=== PATIENT | female | born 1970 | race Caucasian/White ===

== ENCOUNTER → 2017-07-08 | Outpatient (REF) ==
[2017-07-08 11:06] LABS: THYROID STIMULATING HORMONE 2.36 uIU/mL (0.465-4.680)
== END ==
LOC: ZLAB.WCH 10:23
PROVIDERS: Family Medicine
DX: Z01.89 Encounter for other specified special examinations (principal)

== ENCOUNTER → 2019-01-30 | Outpatient (CLI) | payer OTHER | LOC: COL.RAD 09:36 | DX: R10.11 Right upper quadrant pain (principal); R11.0 Nausea | CPT/HCPCS: A9537 ==

== ENCOUNTER → 2019-02-20 | Outpatient (REF) ==
[2019-02-20 17:06] LABS: THYROID STIMULATING HORMONE 1.86 uIU/mL (0.465-4.680)
== END ==
LOC: ZLAB.WCH 16:00
PROVIDERS: Physician Assistant
DX: Z01.89 Encounter for other specified special examinations (principal)

== ENCOUNTER 2019-04-27 11:25 | Emergency (ER) | payer OTHER ==
[~2019-04-27] VITALS: Ht 162.6 cm; Wt 100.0 kg
[2019-04-27 11:26] VITALS: TEMP 98.4
[2019-04-27] MEDS ORDERED: PRIL40 PO (11:47)
[2019-04-27] MEDS ORDERED: NORVASC 10MG10 MG PO (11:47)
[2019-04-27] MEDS ORDERED: TOPROL XL 25MG25 MG PO (11:48)
[2019-04-27] MEDS ORDERED: FLONASE NASAL S16 GM NS (11:48)
[2019-04-27] MEDS ORDERED: PHARMASSURE ZIN50 MG PO (11:49)
[2019-04-27] MEDS ORDERED: PROBIOTIC FORMU1 CAP PO (11:50)
[2019-04-27] MEDS ORDERED: CLARITIN 1010 MG/TAB PO (11:50)
[2019-04-27 11:57] LABS: BASO # 0.1 (0.0-0.2); BASO % 0.6 % (0.0-2.0); EOS # 0.3 (0.0-0.7); EOS % 2.3 % (0-4.0); GRAN # 7.5 (1.4-6.5); GRAN % 65.8 % (42.2-75.2); HEMATOCRIT 44.7 % (37.0-47.0); HEMOGLOBIN 14.3 g/dl (12.5-16.0); LYMPH # 2.6 (1.2-3.4); LYMPH % 22.7 % (20.0-51.0); MEAN CELL VOLUME 82 fl (80.0-100.0); MEAN CORPUSCULAR HEMOGLOBIN 26 pg (27.0-31.0); MEAN CORPUSCULAR HGB CONC 32 g/dl (33.0-37.0); MEAN PLATELET VOLUME 10.2 fl (7.4-10.4); MONO # 0.9 (0.1-0.6); PLATELET COUNT 287 K/mm3 (130-400); RED BLOOD COUNT 5.46 M/mm3 (4.10-5.30); REDCELL DISTRIBUTION WIDTH-CV 15.8 % (11.5-14.5)
[2019-04-27 12:09] LABS: ALANINE AMINOTRANSFERASE 50 U/L (9-52); ALBUMIN 4.2 gm/dL (3.5-5.0); ALKALINE PHOSPHATASE 154 U/L (50-136); ANION GAP 11 mmol/L (7-16); AST,SGOT 41 U/L (15-37); BILIRUBIN,TOTAL 0.4 mg/dL (0.0-1.0); BLOOD UREA NITROGEN 22 mg/dL (7-17); CALCIUM 9.6 mg/dL (8.4-10.2); CARBON DIOXIDE 25 mmol/L (22-30); CHLORIDE 106 mmol/L (98-107); CREATININE, serum 0.67 (0.52-1.25); GLUCOSE 113 mg/dL (74-106); LIPASE 106 U/L (23-300); POTASSIUM 4.2 mmol/L (3.4-5.0); SODIUM 142 mmol/L (137-145); TOTAL PROTEIN 7.9 gm/dL (6.4-8.2)
[2019-04-27 12:18] LABS: TROPONIN-I < 0.012 ng/mL (0.000-0.035)
[2019-04-27] MEDS ORDERED: CARAFATE 1GM1 G PO (15:20)
[2019-04-27 16:42] VITALS: BP 125/76; PULSE 57
== END 2019-04-27 16:43 | disposition home or self-care (01) ==
LOC: COL.ER 11:25
PROVIDERS: Emergency Medicine
DX: R07.89 Other chest pain (principal); I10 Essential (primary) hypertension; R10.11 Right upper quadrant pain; F17.210 Nicotine dependence, cigarettes, uncomplicated; Z90.710 Acquired absence of both cervix and uterus; Z90.49 Acquired absence of other specified parts of digestive tract; Z79.51 Long term (current) use of inhaled steroids

== ENCOUNTER 2021-02-08 13:10 | Emergency (ER) | payer OTHER ==
[~2021-02-08] VITALS: Ht 160 cm; Wt 113.2 kg
[~2021-02-08 13:10] MED LIST: CARAFATE 1GM1 G PO; CLARITIN 1010 MG/TAB PO; FLONASE NASAL S16 GM NS; NORVASC 10MG10 MG PO; PHARMASSURE ZIN50 MG PO; PRIL40 PO; PROBIOTIC FORMU1 CAP PO; TOPROL XL 25MG25 MG PO
[2021-02-08 13:12] VITALS: TEMP 98.2
[2021-02-08 13:39] LABS: BASO # 0.1 (0.0-0.2); BASO % 0.4 % (0.0-2.0); EOS # 0.2 (0.0-0.7); EOS % 1.7 % (0-4.0); GRAN # 8.8 (1.4-6.5); GRAN % 69.4 % (42.2-75.2); HEMATOCRIT 41.4 % (37.0-47.0); HEMOGLOBIN 12.8 g/dl (12.5-16.0); LYMPH # 2.4 (1.2-3.4); LYMPH % 18.9 % (20.0-51.0); MEAN CELL VOLUME 81 fl (80.0-100.0); MEAN CORPUSCULAR HEMOGLOBIN 25 pg (27.0-31.0); MEAN CORPUSCULAR HGB CONC 31 g/dl (33.0-37.0); MEAN PLATELET VOLUME 10.7 fl (7.4-10.4); MONO # 1.1 (0.1-0.6); MONO % 8.4 % (1.7-9.3); PLATELET COUNT 276 K/mm3 (130-400); RED BLOOD COUNT 5.09 M/mm3 (4.10-5.30); REDCELL DISTRIBUTION WIDTH-CV 16.1 % (11.5-14.5)
[2021-02-08 13:47] LABS: ALBUMIN 4.1 gm/dL (3.5-5.0); BILIRUBIN,TOTAL 0.3 mg/dL (0.0-1.0); C-REACTIVE PROTEIN 2.6 mg/dL (0.0-0.9); CREATININE, serum 0.65 (0.52-1.25); TOTAL PROTEIN 7.8 gm/dL (6.4-8.2)
[2021-02-08 14:39] LABS: COLLECTION METHOD CLEAN CATCH
[2021-02-08 14:45] LABS: MUCOUS Present /lpf; PH 7 (5-8); URINE APPEARANCE Hazy; URINE BACTERIA Rare /hpf; URINE BILIRUBIN Negative (NEGATIVE); URINE BLOOD Negative (NEGATIVE); URINE COLOR Yellow; URINE GLUCOSE Negative (NEGATIVE); URINE KETONE Negative (NEGATIVE); URINE LEUKOCYTE ESTERASE Negative (NEGATIVE); URINE NITRATE Negative (NEGATIVE); URINE PROTEIN(semi-quant) Negative (NEGATIVE); URINE RBC None Seen /hpf; URINE UROBILINOGEN Negative (NEGATIVE)
[2021-02-08 16:39] VITALS: BP 109/67; PULSE 85
== END 2021-02-08 16:39 | disposition home or self-care (01) ==
LOC: COL.ER 13:10
PROVIDERS: Nurse Practitioner
DX: R10.32 Left lower quadrant pain (principal); F41.9 Anxiety disorder, unspecified; I10 Essential (primary) hypertension; Z87.891 Personal history of nicotine dependence; Z88.1 Allergy status to other antibiotic agents; Z88.6 Allergy status to analgesic agent; Z79.51 Long term (current) use of inhaled steroids
CPT/HCPCS: Q9967

== ENCOUNTER 2021-02-25 11:32 | Emergency (ER) | payer OTHER ==
[~2021-02-25] VITALS: Ht 160 cm; Wt 113.6 kg
[2021-02-25 11:47] VITALS: TEMP 98.1
[2021-02-25 12:25] LABS: COLLECTION METHOD CLEAN CATCH
[2021-02-25 12:33] LABS: BASO # 0.1 (0.0-0.2); BASO % 0.9 % (0.0-2.0); EOS # 0.2 (0.0-0.7); EOS % 2.4 % (0-4.0); GRAN # 5.8 (1.4-6.5); GRAN % 61.9 % (42.2-75.2); HEMOGLOBIN 13.9 g/dl (12.5-16.0); LYMPH # 2.4 (1.2-3.4); MEAN CELL VOLUME 82 fl (80.0-100.0); MEAN CORPUSCULAR HEMOGLOBIN 25 pg (27.0-31.0); MEAN CORPUSCULAR HGB CONC 31 g/dl (33.0-37.0); MEAN PLATELET VOLUME 10.3 fl (7.4-10.4); MONO # 0.8 (0.1-0.6); MONO % 8.2 % (1.7-9.3); PLATELET COUNT 304 K/mm3 (130-400); RED BLOOD COUNT 5.47 M/mm3 (4.10-5.30); REDCELL DISTRIBUTION WIDTH-CV 16.3 % (11.5-14.5)
[2021-02-25 12:38] LABS: ALBUMIN 4.5 gm/dL (3.5-5.0); BILIRUBIN,TOTAL 0.2 mg/dL (0.0-1.0); C-REACTIVE PROTEIN 2.1 mg/dL (0.0-0.9); CALCIUM 9.8 mg/dL (8.4-10.2); CREATININE, serum 0.62 (0.52-1.25); POTASSIUM 4.2 mmol/L (3.4-5.0); TOTAL PROTEIN 8.8 gm/dL (6.4-8.2)
[2021-02-25 12:39] LABS: MUCOUS Present /lpf; PH 7 (5-8); SQUAMOUS EPITHELIAL 20-50 /hpf; URINE APPEARANCE Cloudy; URINE BACTERIA Rare /hpf; URINE BILIRUBIN Negative (NEGATIVE); URINE BLOOD Negative (NEGATIVE); URINE COLOR Yellow; URINE GLUCOSE Negative (NEGATIVE); URINE KETONE Negative (NEGATIVE); URINE LEUKOCYTE ESTERASE Negative (NEGATIVE); URINE NITRATE Negative (NEGATIVE); URINE PROTEIN(semi-quant) Negative (NEGATIVE); URINE RBC 0-2 /hpf; URINE UROBILINOGEN Negative (NEGATIVE)
[2021-02-25 15:42] VITALS: BP 145/97; PULSE 71
== END 2021-02-25 15:42 | disposition home or self-care (01) ==
LOC: COL.ER 11:32
PROVIDERS: Family Medicine
DX: R29.810 Facial weakness (principal); I10 Essential (primary) hypertension; Z88.8 Allergy status to other drugs, medicaments and biological substances; Z87.891 Personal history of nicotine dependence

== ENCOUNTER 2022-04-15 12:02 | Emergency (ER) | payer OTHER ==
[~2022-04-15] VITALS: Ht 160 cm; Wt 118.2 kg
[2022-04-15 12:08] VITALS: TEMP 98
[2022-04-15 13:41] VITALS: BP 145/95; PULSE 73
== END 2022-04-15 13:38 | disposition home or self-care (01) ==
LOC: COL.ER 12:02
DX: T43.631A Poisoning by methylphenidate, accidental (unintentional), initial encounter (principal)

== ENCOUNTER → 2022-04-20 | Outpatient (CLI) | payer OTHER | LOC: DIA.ED | DX: E11.65 Type 2 diabetes mellitus with hyperglycemia (principal); Z79.84 Long term (current) use of oral hypoglycemic drugs; I10 Essential (primary) hypertension | CPT/HCPCS: G0108 ==

== ENCOUNTER → 2022-07-23 | Outpatient (CLI) | payer OTHER | LOC: DIA.ED 09:23 | DX: E11.65 Type 2 diabetes mellitus with hyperglycemia (principal); E11.40 Type 2 diabetes mellitus with diabetic neuropathy, unspecified; Z79.84 Long term (current) use of oral hypoglycemic drugs; I10 Essential (primary) hypertension | CPT/HCPCS: G0108 ==

== ENCOUNTER 2023-11-19 06:55 | Day surgery (SDC) | payer OTHER ==
[~2023-11-19] VITALS: Ht 160 cm; Wt 95.5 kg
[~2023-11-19 06:55] MED LIST changes: +ATIVAN 0.50.5 MG/TAB PO; +NORCO 325 MG-51 TAB PO; +XANAX 0.5MG0.5 MG PO
[2023-11-19 07:37] VITALS: BP 148/91; PULSE 68; TEMP 97.9
[2023-11-19] MEDS ORDERED: VITAMIN D362.5 MCG PO (07:56)
[2023-11-19] MEDS ORDERED: COREG 3.123.125 MG/T PO (07:57)
[2023-11-19] MEDS ORDERED: GLUCOPHAGE1000 MG PO (07:58)
[2023-11-19] MEDS ORDERED: ASPIRIN 81M81 MG/TA2 PO (07:59)
[2023-11-19] MEDS ORDERED: LIPITOR20 MG PO (08:00)
[2023-11-19 09:05] VITALS: BP 108/79; PULSE 90; TEMP 97.9
[2023-11-19 09:15] VITALS: BP 126/77; PULSE 64
--- NOTE | 2023-11-19 09:45 | NUR ---
Pt returned to [facility] procedure at 0905. VS remain stable. Tolerated oral intake. Discharge teaching complete, verbalized understanding. IV removed and pressure dressing applied. Pt dressed. Taken via wheelchair to private vehicle for dc home with ps driving.
== END 2023-11-19 09:45 | disposition home or self-care (01) ==
LOC: SDCO 06:55
DX: K22.2 Esophageal obstruction (principal); K21.9 Gastro-esophageal reflux disease without esophagitis; E66.01 Morbid (severe) obesity due to excess calories; G47.33 Obstructive sleep apnea (adult) (pediatric); Z68.42 Body mass index [BMI] 45.0-49.9, adult
CPT/HCPCS: C1726; J2704; J7120

== ENCOUNTER 2024-09-15 18:41 | Emergency (ER) | payer OTHER ==
[~2024-09-15] VITALS: Ht 160 cm; Wt 89.5 kg
[~2024-09-15 18:41] MED LIST changes: +ASPIRIN 81M81 MG/TA2 PO; +COREG 3.123.125 MG/T PO; +GLUCOPHAGE1000 MG PO; +LIPITOR20 MG PO; +VITAMIN D362.5 MCG PO
[2024-09-15 18:44] VITALS: TEMP 97.8
[2024-09-15 19:47] LABS: BASO % 0.4 % (0.0-2.0); EOS # 0.3 K/mm3 (0.0-0.7); EOS % 2.9 % (0.0-4.0); GRAN # 5.3 K/mm3 (1.4-6.5); GRAN % 58.6 % (42.2-75.2); HEMOGLOBIN 12.9 g/dl (12.5-16.0); LYMPH # 2.7 K/mm3 (1.2-3.4); LYMPH % 30.5 % (20.0-51.0); MEAN CELL VOLUME 80 fl (80.0-100.0); MEAN CORPUSCULAR HEMOGLOBIN 26 pg (27-31); MEAN CORPUSCULAR HGB CONC 32 g/dl (33.0-37.0); MEAN PLATELET VOLUME 10.7 fl (7.4-10.4); MONO # 0.7 K/mm3 (0.1-0.6); MONO % 7.3 % (1.7-9.3); PLATELET COUNT 239 K/mm3 (130-400); REDCELL DISTRIBUTION WIDTH-CV 15.6 % (11.5-14.5)
[2024-09-15] MEDS ORDERED: ATIVAN 0.50.5 MG/TAB PO (19:59)
[2024-09-15] MEDS ORDERED: VISTARIL 2525 MG/CAP PO (20:00)
[2024-09-15] MEDS ORDERED: Acetaminophen 500 MG TAB PO ONE (20:00)
[2024-09-15] MEDS ORDERED: PROAIR HFA0.09 MG/AC IH (20:01)
[2024-09-15] MEDS ORDERED: BIPAP (20:01)
[2024-09-15 20:02] LABS: ALANINE AMINOTRANSFERASE 12 U/L (0-55); ALBUMIN 3.9 g/dL (3.5-5.0); ALKALINE PHOSPHATASE 136 U/L (40-150); ANION GAP 11 mmol/L (7-16); AST,SGOT 13 U/L (5-34); BILIRUBIN,TOTAL 0.3 mg/dL (0.2-1.2); BLOOD UREA NITROGEN 17 mg/dL (10-20); CALCIUM 9.8 mg/dL (8.4-10.2); CHLORIDE 109 mEq/L (98-107); CREATININE, serum 0.79 mg/dL (0.57-1.11); GLUCOSE 125 mg/dL (70-99); LIPASE 33 U/L (8-78); POTASSIUM 3.7 mEq/L (3.5-4.5); SODIUM 144 mEq/L (136-145); TOTAL PROTEIN 7.6 g/dl (6.2-8.1)
[2024-09-15 20:16] LABS: TROPONIN-I < 0.010 ng/mL (0.00-0.033)
[2024-09-15] MEDS ORDERED: NS 50 ML IV SCH (21:03)
[2024-09-15] MEDS ORDERED: Iohexol 300 - 100 ML VIAL IV ONE (21:03)
[2024-09-15 22:00] VITALS: BP 148/90; PULSE 67
== END 2024-09-15 22:02 | disposition home or self-care (01) ==
LOC: COL.ER 18:41
PROVIDERS: Personal Emergency Response Attendant
DX: R10.13 Epigastric pain (principal); Z79.899 Other long term (current) drug therapy
CPT/HCPCS: Q9967